=== PATIENT | male | born 1980 | race Caucasian/White ===

== ENCOUNTER 2021-03-24 18:02 | Inpatient (IN) ==
[2021-03-24] MEDS ORDERED: *HR* LORazepam 2 MG/ML VIAL IM PRN (21:26)
[2021-03-24] MEDS ORDERED: haloperidoL 5 MG TABLET PO PRN (21:26)
[2021-03-24] MEDS ORDERED: MOM Conc 10 ML UD.LIQ PO PRN (21:26)
[2021-03-24] MEDS ORDERED: Acetaminophen 325 MG TABLET PO PRN (21:26)
[2021-03-24] MEDS ORDERED: Haloperidol Lactate 5 MG/ML VIAL IM PRN (21:26)
[2021-03-24] MEDS ORDERED: traZODone 50 MG TABLET PO PRN (21:26)
[2021-03-24] MEDS ORDERED: Mag Hydrox/Al Hydrox/Simeth 30 ML UDC PO PRN (21:26)
[2021-03-24] MEDS ORDERED: *HR* LORazepam 1 MG TABLET PO PRN (21:26)
[2021-03-25] MEDS: OLANZapine 5 MG TAB.RAPDIS PO SCH ×2 (08:24→21:42)
[2021-03-26] MEDS: OLANZapine 5 MG TAB.RAPDIS PO SCH (09:35)
[2021-03-26] MEDS: OLANZapine 10 MG TAB.RAPDIS PO SCH (21:05)
[2021-03-27] MEDS: OLANZapine 5 MG TAB.RAPDIS PO SCH (09:54)
[2021-03-27] MEDS: QUEtiapine Fumarate 25 MG TABLET PO PRN (20:35)
[2021-03-27] MEDS: OLANZapine 10 MG TAB.RAPDIS PO SCH (20:35)
[2021-03-28] MEDS: OLANZapine 5 MG TAB.RAPDIS PO SCH (09:45)
[2021-03-28] MEDS: risperiDONE 1 MG TABLET PO SCH (12:16)
[2021-03-28] MEDS ORDERED: Petrolatum, White OINT.PACK TP PRN (12:49)
[2021-03-28] MEDS: QUEtiapine Fumarate 25 MG TABLET PO PRN (20:44)
[2021-03-28] MEDS: hydrOXYzine pamoate 25 MG CAPSULE PO PRN (20:44)
[2021-03-28] MEDS ORDERED: RisperiDAL 3 MG TABLET PO SCH (21:00)
[2021-03-28] MEDS ORDERED: Nicotine 2 MG GUM BC PRN (21:43)
[2021-03-29] MEDS: risperiDONE 1 MG TABLET PO SCH ×2 (09:23→20:29)
[2021-03-29] MEDS: QUEtiapine Fumarate 25 MG TABLET PO PRN (20:29)
[2021-03-29] MEDS: hydrOXYzine pamoate 25 MG CAPSULE PO PRN (20:29)
[2021-03-30] MEDS: risperiDONE 1 MG TABLET PO SCH ×2 (09:42→20:06)
[2021-03-30] MEDS: hydrOXYzine pamoate 25 MG CAPSULE PO PRN (20:05)
[2021-03-30] MEDS: QUEtiapine Fumarate 25 MG TABLET PO PRN (20:05)
[2021-03-31] MEDS: risperiDONE 1 MG TABLET PO SCH (09:20)
[2021-03-31 10:24] VITALS: BP 116/88
== END 2021-03-31 15:35 | disposition home or self-care (01) | DRG 750 ==
LOC: EMEROOARM 18:02 → 1ANU 21:22
PROVIDERS: ADMIT Psychiatry & Neurology Psychiatry; ATTEND Psychiatry & Neurology Psychiatry